=== PATIENT | male | born 1955 | race Caucasian/White ===

== ENCOUNTER 2020-10-23 20:10 | Emergency (ER) | payer MEDICAID, SELFPAY ==
[2020-10-23] VITALS (20 sets, daily range): BP systolic 105–144; BP diastolic 53–90; PULSE 47–75; RESP 12–24; TEMP 36.8; O2SAT 96–100; BMI 22.8
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
[2020-10-23 20:33] LABS: Basophils % 0.3 % (0.1-2.0); Eosinophils # 0.1 K/mm3 (0.0-0.4); Eosinophils % 1.1 % (0.1-12.0); Hemoglobin 15.1 g/dL (14.1-18.0); Lymphocytes # 0.9 K/mm3 (0.7-4.5); Lymphocytes % 7.7 % (10-50); Mean Corpuscular HGB Conc 33.6 g/dL (31.8-35.4); Mean Corpuscular Hemoglobin 29.6 pg (27.0-31.2); Mean Corpuscular Volume 88.1 fl (80-94); Mean Platelet Volume 9.9 fl (7.4-10.4); Monocytes # 0.6 K/mm3 (0.1-1.0); Monocytes % 4.6 % (1.7-9.3); Neutrophils # 10.7 K/mm3 (1.8-7.8); Neutrophils % 86.4 % (37.0-80.0); Platelet Count 151 K/mm3 (142-424); Red Blood Count 5.11 M/mm3 (4.60-6.20); Red Cell Distribution Width 12.7 % (11.5-17.5); White Blood Count 12.3 K/mm3 (4.8-10.8)
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
[2020-10-23 20:35] LABS: MANUAL DIFFERENTIAL MANUAL DIFFERENTIAL (MANUAL DIFF)
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
[2020-10-23 20:41] LABS: Alanine Aminotransferase 22 U/L (12-78); Albumin Level 4.6 g/dl (3.5-5.0); Albumin/Globulin Ratio 1.6 (1.1-1.8); Alkaline Phosphatase 81 U/L (38-126); Anion Gap 13.7 mEq/L (5-15); Aspartate Amino Transferase 29 U/L (17-59); Bilirubin,Total 0.8 mg/dl (0.2-1.3); Blood Urea Nitrogen 25 mg/dl (9-20); Calcium 9.1 mg/dl (8.4-10.2); Carbon Dioxide 28 mmol/L (22.0-30.0); Chloride 99 mmol/L (98-107); Estimated Glomerular Filt Rate 76 ml/min (>60); GFR (African American) 92 ML/MIN (>60); Globulin 2.8 g/dL (1.3-3.2); Glucose 154 mg/dl (74-100); Lipase 85 U/L (23-300); Potassium 4.7 mmoL/L (3.5-5.1); Sodium 136 mmol/L (136-145); Total Protein,Serum 7.4 g/dl (6.3-8.2)
[2020-10-23 20:44] LABS: Ethyl Alcohol < 10 mg/dl (0-10)
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
[2020-10-23 20:54] LABS: Lymphocytes % 7 % (10-50); Monocytes % 2 % (2-9); Neutrophils % 91 % (42-76); Platelet Estimate Normal; RBC Morphology Normal; Total Cells Counted 100
[2020-10-23 21:03] LABS: Coronavirus 19, PCR Not Detected (NotDetected); Influenza A, PCR Not Detected (NotDetected); Influenza B, PCR Not Detected (NotDetected)
--- NOTE | 2020-10-23 21:11 | PC.NURSE ---
pt gone to CT
--- NOTE | 2020-10-23 21:47 | PC.NURSE ---
pt back in room from CT
--- NOTE | 2020-10-23 23:54 | XR_ITS ---
PROCEDURE INFORMATION: Exam: XR Chest Exam date and time: 10/23/2020 11:54 PM Age: 64 years old Clinical indication: Device placement; Patient HX: Chest tube placed; Additional info: Procedure, chest tube TECHNIQUE: Imaging protocol: XR of the chest. Views: 1 view. COMPARISON: CR XR CHEST PORTABLE 10/23/2020 8:08 PM FINDINGS: Tubes, catheters and devices: Interval placement of a right lateral approach chest tube, with tip projected over the midportion of the right lung. Lungs: Interval re-expansion of the right lung. Increasing opacification in the suprahilar region may represent mild re-expansion edema or atelectasis. Similar appearance of combined atelectasis and contusion at the right lung base. Pleural spaces: Small residual right pneumothorax, measuring up to 0.6 cm at the apex. Heart/Mediastinum: Normal heart size. No mediastinal shift. Bones/joints: Acute fractures of the right coracoid process in several right ribs are again noted. IMPRESSION: 1. Status post right chest tube placement. Small residual right pneumothorax. Right suprahilar re-expansion edema or atelectasis. 2. Otherwise unchanged appearance of the small right pleural effusion, right basilar contusion/atelectasis, right coracoid process fracture, and several right rib fractures.
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
[2020-10-24] VITALS: BP 120/67; BP 121/64; PULSE 58; PULSE 59; RESP 14; RESP 22; O2SAT 98; O2SAT 99
[2020-10-24 00:05] VITALS: BP 116/66; PULSE 59; RESP 14; O2SAT 99
[2020-10-24 00:10] VITALS: BP 113/63; PULSE 60; RESP 20; O2SAT 99
--- NOTE | 2020-10-24 00:14 | PC.NURSE ---
2324 Time out for right chest tube placement with conscience sedation 2324 50mg Ketamine given IV and pt positioned with right arm above head V.S. stable with 2 L/M O2 Dr Sanchez starting procedure 2325 25 mg Ketamine given IV [address] with sanguineous output, Dr Sanchez suturing in place pt tolerating well all VS stable Tube connected to Puravac with 20 cm suction No air leak or Crepitus noted 2356 Vasoline gauze placed and tube taped in place 40 ml of Sanguineous output.
--- NOTE | 2020-10-24 00:16 | PC.NURSE ---
lukas barton on phone with [facility]. pt accepted by dr dennis
--- NOTE | 2020-10-24 00:17 | PC.NURSE ---
notified [facility] of transfer
[2020-10-24 01:06] VITALS: BP 113/62; PULSE 62; RESP 20; TEMP 36.8; O2SAT 98
== END 2020-10-24 01:06 | disposition critical access hospital (66) ==
PROVIDERS: Emergency Provider Emergency Medicine
DX: S22.41XA Multiple fractures of ribs, right side, initial encounter for closed fracture (principal); S27.0XXA Traumatic pneumothorax, initial encounter; S42.131A Displaced fracture of coracoid process, right shoulder, initial encounter for closed fracture; V23.4XXA Motorcycle driver injured in collision with car, pick-up truck or van in traffic accident, initial encounter; Y92.488 Other paved roadways as the place of occurrence of the external cause
CPT/HCPCS: 36556; 70450; 71045; 71275; 72125; 72128; 72131; 72170; 73060; 73080; 73090; 74177; 80053; 83690; 85007; 85025; 96365; 96375; 96376; 99284; J2405; Q9967; U0003